=== PATIENT | male | born 1980 | race Caucasian/White ===

== ENCOUNTER 2019-03-07 08:48 | Emergency (ER) | payer OTHER ==
--- NOTE | 2019-03-07 09:21 | ED Physician Documentation ---
PD HPI ABD PAIN - Stated complaint Stated Complaint: Abd pain - Chief complaint Chief Complaint: Abd Pain - History obtained from History obtained from: Patient - History of Present Illness Timing - onset: Yesterday Timing - duration: Days (1-2) Timing - details: Gradual onset Quality: Cramping, Aching, Pain Location: Periumbilical, LLQ Radiation: Lower back. No: Left flank Improved by: No: BM Associated symptoms: Diarrhea (chronic and had not had real resolution of diarrhea even when on steroids as he had in the past, but has had some degree of symptoms for the past 3 months. Has appt with new GI in [place] in ?10 days. Also sees GI in Dr. Jose Goodman.), Hematochezia (Has small amounts of blood along with mucus in his stool. Some element of diarrhea but not large volume. He states the mucus and diarrhea has been fairly consistent over the last 3 months despite steroid dosings. Previously the steroids would get him resolved to normal stools. He has not had any stool cultures over the last few months.). No: Fever, Nausea, Vomiting, Melena Review of Systems Constitutional: reports: Myalgias. denies: Fever, Chills Nose: denies: Rhinorrhea / runny nose, Congestion Throat: denies: Sore throat Respiratory: denies: Cough GI: reports: Abdominal Pain, Nausea, Diarrhea, Bloody / black stool (mild with mucous). denies: Abdominal Swelling, Vomiting, Constipation, Hematemesis Skin: denies: Rash Neurologic: denies: Generalized weakness, Near syncope PD PAST MEDICAL HISTORY - Past Medical History Cardiovascular: None Respiratory: None Neuro: None Endocrine/Autoimmune: None GI: Ulcerative colitis - Present Medications Home Medications: Ambulatory Orders Medication Instructions Recorded Confirmed Dicyclomine [Bentyl] 10 mg PO QID PRN #20 capsule 03/07/19 Hydrocortisone Acetate [Anucort-Hc] 25 mg RC DAILY #5 supp.rect 03/07/19 Metronidazole [Flagyl] 500 mg PO BID #14 tablet 03/07/19 Ondansetron Odt [Zofran] 4 mg TL Q6H PRN #10 tablet 03/07/19 predniSONE [Prednisone] 40 mg PO DAILY #25 tablet 03/07/19 - Allergies Allergies/Adverse Reactions: Allergies Allergy/AdvReac Type Severity Reaction Status Date / Time Penicillins Allergy Hives Verified 03/07/19 09:05 PD ED PE NORMAL - Vitals Vital signs reviewed: Yes - General General: Alert and oriented X 3, No acute distress, Well developed/nourished - HEENT HEENT: Pharynx benign - Neck Neck: Supple, no meningeal sign, No adenopathy - Cardiac Cardiac: RRR, No murmur - Respiratory Respiratory: Clear bilaterally - Abdomen Abdomen: Normal bowel sounds, Soft, Non distended, No organomegaly, Other (There is some tenderness in the left lower quadrant and mid abdomen and suprapubic area without any guarding percussion or rebound tenderness.) - Male Male : Deferred - Rectal Rectal: Deferred - Back Back: No CVA TTP - Derm Derm: Normal color, Warm and dry - Neuro Neuro: Alert and oriented X 3, No motor deficit, Normal speech Results - Vitals Vitals: Vital Signs - 24 hr 03/07/19 03/07/19 09:02 09:48 Temperature 36.1 C L Heart Rate 80 77 Respiratory 16 17 Rate Blood Pressure 148/90 H 157/103 H O2 Saturation 95 97 Oxygen O2 Source Room air PD MEDICAL DECISION MAKING - ED course Complexity details: reviewed results (He did not have a bowel movement while here. He was given a prescription for lab to have C. difficile by PCR, ova and parasite study and a stool culture. He is to bring in a sample to his primary care or to the lab here.), considered differential (Patient with long history of ulcerative colitis with GI specialist and is well versed in the treatment options. He does not appear to have an acute abdomen so I do not feel there is any complications such as abscess or perforation. We discussed treatment options and settled on a treatment plan. He has a GI appointment in about 10 days.), d/w patient Departure - Departure Disposition: 01 Home, Self Care Clinical Impression: Exacerbation of ulcerative colitis without complication Abdominal pain Qualifiers: Abdominal location: lower abdomen, unspecified Qualified Code(s): R10.30 - Lower abdominal pain, unspecified Condition: Stable Record reviewed to determine appropriate education?: Yes Instructions: ED Colitis Ulcerative Follow-Up: SAL ARMANDO III, MD [Primary Care Provider] - Kemar Garcia MD [Provider Admit Priv/Credential] - Prescriptions: Dicyclomine [Bentyl] 10 mg PO QID PRN #20 capsule PRN Reason: Abdominal Pain Hydrocortisone Acetate [Anucort-Hc] 25 mg RC DAILY #5 supp.rect Metronidazole [Flagyl] 500 mg PO BID #14 tablet Ondansetron Odt [Zofran] 4 mg TL Q6H PRN #10 tablet PRN Reason: Nausea / Vomiting predniSONE [Prednisone] 40 mg PO DAILY #25 tablet Comments: Stay well-hydrated. Continue usual medications. Start prednisone 40 mg daily for 5 days then 30 mg daily for 5 days then 20 mg daily. By then you will be seen your specialist or follow-up with your primary care to decide the further tapering of that. Short-term can also add hydrocortisone suppository daily for 5 days to get at the lower segment a little better. Bring a stool sample to your primary care or here to look for infectious contribution such as C. difficile or Salmonella etc. Otherwise it can be some infectious component to an ulcerative colitis flareup so could go with metronidazole twice daily for a week as well. Ondansetron if needed for nausea. Dicyclomine if needed for cramps and pains. Continue Tylenol as needed. Discussed with your GI if they think there could be some contribution from the p roton pump inhibitors for your reflux contributing to the diarrhea or cramping. If so there might try up H2 julio for the reflux instead but I would defer to their experience with it. Discharge Date/Time: 03/07/19 10:37
[2019-03-07 09:48] VITALS: BP 157/103
[2019-03-07] MEDS ORDERED: predniSONE 20 MG TABLET PO STA (10:18)
[2019-03-07] MEDS ORDERED: DICYCLOMINE 10 MG CAPSULE PO STA (10:24)
== END 2019-03-07 10:37 | disposition home or self-care (01) ==
LOC: ED 08:48
DX: K51.90 Ulcerative colitis, unspecified, without complications (principal)
CPT/HCPCS: 99284; A9270; J7512; 80053; 83690; 85025